=== PATIENT | male | born 1940 | race Caucasian/White ===

== ENCOUNTER 2017-10-20 10:22 | Day surgery (SDC) | payer MEDICARE, SELFPAY ==
[2017-10-20] VITALS (10 sets, daily range): BP systolic 143–216; BP diastolic 94–110; PULSE 69–92; RESP 16–20; TEMP 36.6–36.8; O2SAT 90–99; BMI 36.6
--- NOTE | 2017-10-20 10:33 | ED.VISSUMM ---
- ER Visit Summary Date of Service: 10/20/17 Chief Complaint: Flank pain, abdominal pain History of Present Illness: The patient is a 77 M presents to the emergency department with flank pain and abdominal pain. The patient has a history of kidney stone. He states he last had a lithotripsy about 4 years ago. He states that he woke suddenly with pain in his left back that migrated to his left lower quadrant. He states he cannot get comfortable. He did have 2 bowel movements which he states were normal. He states when he urinates, he feels like he cannot fully empty. He was nauseated without vomiting. He denies any other abdominal surgery. He has not found anything to improve his discomfort. Physical Examination: Vital signs reviewed General: Well-nourished, well-developed Head: Normocephalic, atraumatic Eyes: Pupils equal and reactive, extraocular muscles intact Neck, supple, no lymphadenopathy Heart: Regular rate and rhythm Respiratory: No distress, clear bilaterally Abdomen: Soft, mildly tender in the left lower quadrant without rebound or guarding, nondistended, no peritoneal signs Back: Nontender Extremities: Nontender, no edema, no cords Skin: Normal color no rash Neuro: Alert and oriented, no focal or lateralizing deficits Test Results: [] Emergency Department Course and Treatment: The patient has signs and symptoms that are consistent with kidney stone. IV was established. He was given a dose of analgesics and had some improvement of pain, but then returned. Labs are unremarkable. CT shows a 5 mm distal obstructing stone with hydronephrosis. The patient's pain returned and he was redosed with medications. He continued to have persistent pain. Given his age and persistent pain, I did discuss the patient with Dr. Owens on ma. He is going to take the patient to the operating room for attempt at stone retrieval. The patient will be admitted to urology. Treatment Plan: [] Disposition: Admission Impression: 1. Obstructing left urolithiasis This note was generated with [employer] dictation software. It may contain incorrect words, spelling, and punctuation that were not noted in review of the chart prior to signing ED Disposition - Plan for ED Patient: Chief Complaint: Flank Pain Referrals: [facility] Doctor,Out of [NON-STAFF] -
[2017-10-20] MEDS: Ondansetron 4 MG/2 ML Vial IV (10:45)
[2017-10-20] MEDS: Morphine 4 MG/ML Syringe IV ×2 (10:45→12:11)
[2017-10-20] MEDS: 0.9% Normal Saline 1,000 ML 250 ML IV (10:45)
[2017-10-20 11:17] LABS: Absolute Neutrophil Count 4.5 X10^3/uL (2.0-7.7); Basophil# 0.06 X10^3/uL; Basophil% 0.8 % (0-1); Eosinophil# 0.29 X10^3/uL; Eosinophils% 3.8 % (0-5); Hematocrit 42.9 % (40-54); Hemoglobin 14.2 g/dl (13.0-16.5); Lymphocyte % 27.3 % (19-41); Mean Corp Hgb Conc 33.1 g/gl (32-36); Mean Corpuscular Volume 90.5 fL (80-94); Mean Platelet Vol. 9.1 fl (6.2-12.0); Monocyte# 0.67 X10^3/uL; Monocyte% 8.7 % (0-10); Neutrophil # 4.51 X10^3/uL (2.7-7.7); Neutrophil % 58.7 % (47-70); POSITIVE COUNT NO; POSITIVE DIFFERENTIAL NO; POSITIVE MORPHOLOGY NO; Platelet Count 207 K/mm3 (150-450); RBC Distribution Width CV 13.4 % (11.6-14.6); RBC Distribution Width SD 44.6 fl (35.1-43.9); Red Blood Count 4.74 M/mm3 (4.6-6.2); White Blood Count 7.7 K/mm3 (4.4-11.0)
[2017-10-20 11:32] LABS: Anion Gap 7 (5-15); BUN 22 mg/dL (7-18); BUN/Creat Ratio 17.2 RATIO (10-20); Calcium,Total 8.5 mg/dL (8.5-10.1); Chloride 109 mmol/L (98-107); Creatinine, Serum 1.28 mg/dL (0.70-1.30); EST Glomerular Filtration Rate 58 mL/min (>60); Est Glom Filt Rate - Afr Amer 70 mL/min (>60); Estimated Creatinine Clearance 43.38 ml/min; Glucose 127 mg/dL (74-106); Sodium Level 144 mmol/L (136-145)
[2017-10-20 16:35] LABS: Bacteria 0 SEEN /hpf (None Seen); Squamous Epithelial Cells - UA 0 SEEN /hpf (0-5); White Blood Cells 0 SEEN /hpf (0-5)
[2017-10-20 16:46] LABS: Color, Urine Yellow (Yellow); Glucose, Dipstick Normal (Normal); Ketone-Dipstick Negative (Negative); Leukocyte Esterase-Dipstick Negative /ul (Negative); Nitrite-Dipstick Negative (Negative); Occult Blood-Urine 10 /ul (Negative); Protein-Dipstick Negative (Negative); Urine Bilirubin Dipstick Negative (Negative); Urine Clarity Clear (Clear); Urine Urobilinogen Normal (Normal)
[2017-10-20 17:01] LABS: Mucous, Urine 1+ /hpf (<or=2+); Red Blood Cells-Urine 0-5 SEEN /hpf (0-5)
--- NOTE | 2017-10-20 17:37 | PCM.HP.STD ---
History of Present Illness Date of Admission: 10/20/17 Chief Complaint: Left severe renal colic The patient is a 77 year old male from [place] who was traveling presented to the emergency room here with severe left flank pain. CAT scan was done that demonstrated a 5 mm stone in distal left ureter causing obstruction and hydronephrosis patient was given the option to continue traveling the [facility] can make at the [place] however he was concerned about the severe pain he was having so today were taken to the surgery to place a stent on the left side to alleviate the obstruction. He understands he will need to see a urologist to follow-up to remove the stone and the stent in the near future. Past Medical History Allergies Iodinated Contrast- Oral and IV Dye Allergy (Verified 10/20/17 10:25) Rash Home Medications: Ambulatory Orders Medication Instructions Recorded Ciprofloxacin [Cipro] 500 mg PO BID #6 tab 10/20/17 Hydrocodone/Acetaminophen [[place] 1 ea PO Q4H PRN PRN 5 Days #20 tab 10/20/17 5-325 Tablet] Surgical History: noncontributory Psychiatric History: No pertinent psych hx Lives: Spouse/ Significant Other Smoking Status: Never smoker - *Family History Maternal History Items: No pertinent history Review of Systems Constitutional: Denies: Chills, Fever, Weight Change HEENT: Denies: Head Aches, Sinus Congestion, Sinus Drainage Cardiovascular: Denies: Chest Pain, Palpitations Respiratory: Denies: Cough, Shortness of breath at rest, Sputum production Gastrointestinal: Denies: Abdominal Pain, Nausea, Vomiting Genitourinary: Denies: Dysuria Musculoskeletal: Denies: Joint Pain, Joint Tenderness Skin: Denies: Rash, Wounds Neurological: Denies: Numbness, Tingling, Focal weakness Psychiatric: Denies: Anxiety, Depression, Homicidal Ideations, Suicidal Ideations Hematologic/ Lymphatic: Denies: Easy Bruising, Easy Bleeding VTE Information - Inpt Only VTE Present on Admission: No VTE Mechan Device Prophylaxis: SCD's - Physical Exam General: Alert, Oriented x3, Cooperative HEENT: Atraumatic, PERRLA, EOMI, Normocephalic Neck: Supple, No JVD, Negative Carotid Bruits Lungs: Clear to auscultation, Normal air movement Cardiovascular: Regular rate, No murmurs Abdomen: Bowel Sounds Present, Soft, Non Tender Extremities: No edema, Capillary Refill Less than 3 Seconds Skin: No rashes, No breakdown Musculoskeletal: No Tenderness to Palpation of Joints or Extremities Neurological: Cranial nerves II-XII grossly intact Psych/Mental Status: Normal Affect, Appropriate Vital Signs Temp Pulse Resp BP Pulse Ox 97.8 F 79 16 172/106 H 94 10/20/17 13:20 10/20/17 13:20 10/20/17 13:20 10/20/17 13:20 10/20/17 13:20 Oxygen Delivery Method Room Air Weight: 99.79 kg Body Mass Index (BMI) 36.6 Laboratory Tests Past 24 Hrs 10/20/17 10/20/17 10/20/17 10:54 10:55 10:55 WBC 7.7 RBC 4.74 Hgb 14.2 Hct 42.9 MCV 90.5 MCH 30.0 MCHC 33.1 RDW 13.4 RDW Differential 44.6 H Plt Count 207 MPV 9.1 Immature Gran % (Auto) 0.700 Neut % (Auto) 58.7 Lymph % (Auto) 27.3 [place] % (Auto) 8.7 Eos % (Auto) 3.8 Baso % (Auto) 0.8 Absolute Neuts (auto) 4.5 Absolute Lymphs (auto) 2.10 Total Counted Not Reportable Sodium 144 Potassium 4.0 Chloride 109 H Carbon Dioxide 28.0 Anion Gap 7 BUN 22 H Creatinine 1.28 Estim Creat Clear Calc 43.38 Est GFR (MDRD) Af Amer 70 Est GFR (MDRD) Non-Af 58 L BUN/Creatinine Ratio 17.2 Glucose 127 H Calcium 8.5 Urine Color Yellow Urine Clarity Clear Urine pH 5.0 Ur Specific [place] 1.020 Urine Protein Negative Urine Glucose (UA) Normal Urine Ketones Negative Urine Occult Blood 10 H Urine Nitrite Negative Urine Bilirubin Negative Urine Urobilinogen Normal Ur Leukocyte Esterase Negative Urine RBC 0-5 SEEN Urine WBC 0 SEEN Ur Squamous Epith Cells 0 SEEN Urine Bacteria 0 SEEN Urine Mucus 1+ Assessment/Plan 77-year-old male with obstructing stone in the distal left ureter 5 mm in size. Plan to take the surgery today for cystoscopy and left stent placement he will need to follow-up with urologist in [place] to complete his care regarding this stone.
--- NOTE | 2017-10-20 17:41 | PCM.DC.URO ---
Discharge Diet: Light diet - advance as tolerated Discharge Activity: May Not Drive, May not drive while taking narcotic pain medications. Instructions: Ureteral Stents Allergies/Adverse Reactions: Allergies Iodinated Contrast- Oral and IV Dye Allergy (Verified 10/20/17 10:25) Rash Medications to take at Discharge Ciprofloxacin [Cipro] 500 mg PO BID #6 tab 10/20/17 Hydrocodone/Acetaminophen [[place] 5-325 Tablet] 1 ea PO Q4H PRN PRN 5 Days #20 tab 10/20/17 The following prescriptions were given: Hydrocodone/Acetaminophen [[place] 5-325 Tablet] 1 ea PO Q4H PRN PRN 5 Days #20 tab PRN Reason: Pain Ciprofloxacin [Cipro] 500 mg PO BID #6 tab Primary Care Physician: [facility] Doctor,Out of [NON-STAFF] - Test Results: Test results from this visit will be discussed in further detail at your follow-up appointment, if applicable. Please Follow Up With: Noe Clemons MD When: follow up with your urologist in [place] for stone, only placed stent
[2017-10-20] MEDS: Lidocaine Jelly 2% 20 ML Syringe (URO-JET) 20 APPLIC (17:48)
--- NOTE | 2017-10-20 17:58 | PCM.OPRPT ---
Problem List (1) Left ureteral calculus Status: Acute Report of Operation Date of Procedure: 10/20/17 Pre-Operative Diagnosis: Left ureteral calculi with high-grade obstruction and renal colic Post-Operative Diagnosis: Same Surgery/Procedure Performed:: Cystoscopy and left stent placement Description of Surgical Findings:: 77-year-old male who is traveling, presented to the emergency room with severe left flank pain CAT scan was done demonstrated a 5 mm stone in the distal left ureter, talk to the options of the patient going home seen his urologist locally for further care or placing the stent to alleviate the pain and then follow-up with his urologist for local care. He was having severe amount of pain so he elected to have a stent placed. 77-year-old male taken back to the operating room after smooth induction of MAC local penis and testicles are prepped and draped in usual sterile fashion, placed lidocaine jelly into the urethra, went to the bladder with a 21 [place] rigid cystourethroscope, identified the right and left ureteral orifice, I think cannulated the left ureteral orifice with a Glidewire advanced a wire up into the kidney to a coiled and then over the wire advanced a stent 6 [place] by 28 cm stent. The stent coiled in the kidney and the colon the bladder appropriately. The bladder was then drained. I spoke to his and let her know that at this point only place a stent to alleviate the obstruction and he will need to follow-up with his urologist locally in [place] to treat the stone. Also explained to his that the stent is only temporary and needs to be removed. She was given a copy of this operative report. Type of Anesthesia:: General Drains: stent 6 fr x 28cm on the left side. - Admit VTE Documentation VTE Present on Admission: No VTE Mechan Device Prophylaxis: SCD's
[2017-10-20] MEDS: Ketorolac 15 MG/ML Vial IV (18:44)
== END 2017-10-20 19:23 | disposition home or self-care (01) ==
LOC: ED 13:17 → SDC 13:57 → AC 14:19
PROVIDERS: Emergency Provider Emergency Medicine; Visit Provider Urology
PROC: (CPT 52332; principal; 2017-10-20 12:50)
DX: N13.2 Hydronephrosis with renal and ureteral calculous obstruction (principal); I25.2 Old myocardial infarction; G47.30 Sleep apnea, unspecified; Z87.442 Personal history of urinary calculi
CPT/HCPCS: 52332; 74176; 76000; 80048; 81001; 85025; 99284; J7030; J7120; A4216; C1769; J2405